=== PATIENT | male | born 1980 | race Caucasian/White ===

== ENCOUNTER 2020-12-21 15:01 | Emergency (ER) | payer BC ==
[~2020-12-21] VITALS: Ht 177.8 cm; Wt 72.6 kg
[2020-12-21] MEDS ORDERED: DICLOFENAC SODI75 MG PO (17:08)
[2020-12-21] MEDS ORDERED: NORFLEX100MG PO (17:08)
== END 2020-12-21 17:15 | disposition home or self-care (01) ==
LOC: ER 15:01
DX: M62.830 Muscle spasm of back (principal)